=== PATIENT | male | born 1990 | race Caucasian/White ===

== ENCOUNTER 2018-08-16 01:21 | Emergency (ER) | payer OTHER ==
[~2018-08-16] VITALS: Ht 182.9 cm; Wt 104.3 kg
[2018-08-16] MEDS ORDERED: TETANUS-DIPTH-ACEL PERTUSSIS 0.5ML SYRG IM ONE (03:15)
[2018-08-16] MEDS ORDERED: cefTRIAXone SOD 1,000 MG VL IM ONE (03:15)
[2018-08-16 03:25] VITALS: BP 132/87
== END 2018-08-16 04:33 | disposition home or self-care (01) ==
LOC: ER 01:30
DX: S61.012A Laceration without foreign body of left thumb without damage to nail, initial encounter (principal); W26.8XXA Contact with other sharp object(s), not elsewhere classified, initial encounter; Y93.89 Activity, other specified; Y99.0 Civilian activity done for income or pay; Y92.89 Other specified places as the place of occurrence of the external cause
CPT/HCPCS: 12002; 90471; 90715; 96372; 99283; J0696